=== PATIENT | female | born 1960 | race Caucasian/White ===

== ENCOUNTER 2023-11-01 17:51 | Emergency (ER) | payer OTHER ==
[~2023-11-01] VITALS: Ht 162.6 cm; Wt 72.6 kg
[~2023-11-01 17:51] MED LIST: INSU100V SQ; INSU100V9 SQ
[2023-11-01 17:55] VITALS: BP_SYST 94; PULSE 118; RESP 22; TEMP 98.3; O2SAT 98
[2023-11-01 18:11] VITALS: BP_SYST 90; PULSE 67; RESP 18; TEMP 97.8; O2SAT 97
[2023-11-01] MEDS: NS 1000 ML IV.SOLN IV ONE (18:19)
[2023-11-01] MEDS ORDERED: LIP40 PO (19:27)
[2023-11-01] MEDS ORDERED: METF-379 PO (19:27)
[2023-11-01] MEDS ORDERED: LOSA-413 PO (19:27)
[2023-11-02] MEDS ORDERED: PIPERACILLIN/TAZOBACTAM 3.375 GM/VIAL (ZOSYN) IV ONE (02:31)
[2023-11-04] MEDS ORDERED: GUAI-723 PO (12:03)
[2023-11-04] MEDS ORDERED: AUG875 PO (12:03)
== END 2023-11-01 17:52 | disposition still patient (30) ==
LOC: SED 17:51
DX: R42 Dizziness and giddiness (principal); R53.1 Weakness; R55 Syncope and collapse; R10.9 Unspecified abdominal pain; I95.9 Hypotension, unspecified; E11.9 Type 2 diabetes mellitus without complications; I10 Essential (primary) hypertension; Z79.4 Long term (current) use of insulin
CPT/HCPCS: 71045; 93005; 99283; J2543